=== PATIENT | female | born 1940 | race African-American/Black ===

== ENCOUNTER 2020-05-30 15:19 | Emergency (ER) | payer MEDICARE ==
[~2020-05-30] VITALS: Ht 162.6 cm; Wt 77.9 kg
--- NOTE | 2020-05-30 15:59 | PHYS DOC ---
General Adult EDM: Chief Complaint: DIZZY/LIGHT HEADED HPI: HPI: Patient is a 80-year-old female who presents with weakness and dizziness. Patient states that she was reaching up to grab a glass from her cabinet, when she felt like she was unable to grasp the glass. Patient also reports weakness in her legs. Family states that patient has had issues with weakness, shakiness for the past year but today symptoms were worse. Patient denies nausea, vomiting. Denies shortness of breath or chest pain. (RENAE GACRIA HAZARDOUS WASTE MANAGEMENT SPECIALIST) Review of Systems: Review of Systems: Constitutional: Denies fever or chills Eyes: Denies change in visual acuity HENT: Denies nasal congestion or sore throat Respiratory: Denies cough or shortness of breath Cardiovascular: Denies chest pain or edema GI: Denies abdominal pain, nausea, vomiting, bloody stools or diarrhea : Denies dysuria Musculoskeletal: Denies back pain or joint pain Integument: Denies rash Neurologic: Denies headache, reports generalized weakness Endocrine: Denies polyuria or polydipsia Lymphatic: Denies swollen glands Psychiatric: Denies depression or anxiety (RENAE GARCIA HAZARDOUS WASTE MANAGEMENT SPECIALIST) Physical Exam: PE: Constitutional: Well developed, well nourished, no acute distress, non-toxic appearance. [] HENT: Normocephalic, atraumatic, bilateral external ears normal, oropharynx moist, no oral exudates, nose normal. [] Eyes: PERRLA, EOMI, conjunctiva normal, no discharge. [] Neck: Normal range of motion, no tenderness, supple, no stridor. [] Cardiovascular:Heart rate regular rhythm, no murmur [] Lungs & Thorax: Bilateral breath sounds clear to auscultation [] Abdomen: Bowel sounds normal, soft, no tenderness, no masses, no pulsatile masses. [] Skin: Warm, dry, no erythema, no rash. [] Back: No tenderness, no CVA tenderness. [] Extremities: No tenderness, no cyanosis, no clubbing, ROM intact, no edema. [] Neurologic: Alert and oriented X 3, normal motor function, normal sensory function, no focal deficits noted. [] Psychologic: Affect normal, judgement normal, mood normal. [] (RENAE GARCIA HAZARDOUS WASTE MANAGEMENT SPECIALIST) EKG: EKG: SInus Rhythm, HR 73 BPM[] (RENAE GARCIA APRN) Radiology/Procedures: Radiology/Procedures: [] (RENAE GARCIA APRN) Heart Score: HEART Score for Chest Pain: HEART Score for Chest Pain Response (Comments) Value History Moderately Suspicious 1 ECG Normal 0 Age > 65 2 Risk Factors 1 or 2 Risk Factors 1 Troponin < Normal Limit 0 Total 4 Risk Factors: Risk Factors: DM, Current or recent (<one month) smoker, HTN, HLP, family history of CAD, obesity. Risk Scores: Score 0 - 3: 2.5% MACE over next 6 weeks - Discharge Home Score 4 - 6: 20.3% MACE over next 6 weeks - Admit for Clinical Observation Score 7 - 10: 72.7% MACE over next 6 weeks - Early Invasive Strategies (RENAE GARCIA APRN) Course & Med Decision Making: Course & Med Decision Making Pertinent Labs and Imaging studies reviewed. (See chart for details) []Patient is a 80-year-old female who presents with weakness and dizziness. Patient states that she was reaching up to grab a glass from her cabinet, when she felt like she was unable to grasp the glass. Patient also reports weakness in her legs. Family states that patient has had issues with weakness, shakiness for the past year but today symptoms were worse. Patient denies nausea, vomiting. Denies shortness of breath or chest pain. Chest Xray and CT head negative for acute abnormalities. UA negative for infection. Heart score of 4. Patient is hemodynamically stable. Patient requesting to be discharged to home and follow up with PCP for further evaluation and referral. Patient and daughter both agree with this plan. Patient is able to ambulate on her own at discharge and reports that she feels better. (RENAE GARCIA APRN) Dragon Disclaimer: Dragon Disclaimer: This electronic medical record was generated, in whole or in part, using a voice recognition dictation system. (RENAE GARCIA APRN) Departure Departure: Impression: Primary Impression: Weakness generalized Disposition: 01 DC HOME SELF CARE/HOMELESS Condition: IMPROVED Patient Instructions: Weakness, [id number] Additional Instructions: He was in the emergency room for weakness and shakiness. Your CT of your head was negative for any acute abnormalities. Follow-up with your primary care physician tomorrow for further evaluation and referral. Please return to the emergency room with worsening symptoms or concerns. EMERGENCY DEPARTMENT GENERAL DISCHARGE INSTRUCTIONS Thank you for coming to [facility] (ED) today and trusting us with you care. We trust that you had a positivie experience in our Emergency Department. If you wish to speak to the department management, you may call the director at [phone]. YOUR FOLLOW UP INSTRUCTIONS ARE FOLLOWS: 1. Do you have a private Doctor? If you do not have a private doctor, please ask for a resource list of physicians or clinics that may be able to assist you with follow up care. 2. The Emergency Physician has interpreted your x-rays. The X-Ray specialist will also review them. If there is a change in the findings, you will be notified in 48 hours when at all possible. 3. A lab test or culture has been done, your results will be reviewed and you will be notified if you need a change in treatment. ADDITIONAL INSTRUCTIONS AND INFORMATION: 1. Your care today has been supervised by a physician who is specially trained in emergency care. Many problems require more than one evaluation for a complete diagnosis and treatment. We recommend that you schedule your follow up appointment as recommended to ensure complete treatment of you illness or injury. If you are unable to obtain follow up care and continue to have a problem, or if your condition worsens, we recommend that you return to the ED. 2. We are not able to safely determine your condition over the phone nor are we able to give sound medical advice over the phone. For these safety reasons, if you call for medical advice we will ask you to come to the ED for further evaluation. 3. If you have any questions regarding these discharge instructions please call the ED at [phone]. SAFETY INFORMATION: In the interest of safety, wellness, and injury prevention; we encourage you to wear your sealbelt, if you smoke; quite smoking, and we encourage family to use a protective helmet for bicycling and other sporting events that present an increased risk for head injury. IF YOUR SYMPTOMS WORSEN OR NEW SYMPTOMS DEVELOP, OR YOU HAVE CONCERNS ABOUT YOUR CONDITION; OR IF YOUR CONDITION WORSENS WHILE YOU ARE WAITING FOR YOUR FOLLOW UP APPOINTMENT; EITHER CONTACT YOUR PRIMARY CARE DOCTOR, THE PHYSICIAN WHOSE NAME AND NUMBER YOU WERE GIVEN, OR RETURN TO THE ED IMMEDIATELY. Attending Signature Attending Signature I have reviewed the PA/STATION COOK's note and plan of care. I was available for con sultation as needed during the patient's visit in the emergency department. I agree with the clinical impression, plan, and disposition. (NATASHA SIMS DO) RENAE GARCIA APRN May 30, 2020 15:59 NATASHA SIMS DO May 30, 2020 23:03
[2020-05-30 16:15] LABS: BASO # 0.1 x10^3/uL (0.0-0.2); BASO % 1 % (0-3); EOS # 0.1 x10^3/uL (0.0-0.7); EOS % 1 % (0-3); HEMATOCRIT 41.8 % (36.0-47.0); HEMOGLOBIN 13.5 g/dL (12.0-15.5); LYMPH # 2.9 x10^3/uL (1.0-4.8); LYMPH % 49 % (24-48); MEAN CORPUSCULAR HEMOGLOBIN 30 pg (25-35); MEAN CORPUSCULAR HGB CONC 32 g/dL (31-37); MEAN CORPUSCULAR VOLUME 93 fL (79-100); MONO # 0.4 x10^3/uL (0.0-1.1); MONO % 7 % (0-9); NEUT # 2.4 x10^3uL (1.8-7.7); NEUT % 41 % (31-73); PLATELET COUNT 148 x10^3/uL (140-400); RED CELL DISTRIBUTION WIDTH 17.2 % (11.5-14.5); WHITE BLOOD COUNT 5.9 x10^3/uL (4.0-11.0)
[2020-05-30 16:23] LABS: BACTERIA,URINE 0 /HPF (0-FEW); BILIRUBIN,URINE NEG (NEG); CLARITY,URINE CLEAR; COLOR,URINE YELLOW; GLUCOSE,URINE NEG (NEG); NITRITE,URINE NEG (NEG); RBC,URINE 0 /HPF (0-2); UROBILINOGEN,URINE 0.2 mg/dL (0.2 mg/dL); WBC,URINE 0 /HPF (0-4)
--- NOTE | 2020-05-30 16:24 | RAD ---
EXAM: CHEST ONE VIEW. HISTORY: Weakness. COMPARISON: None. FINDINGS: A frontal view of the chest is obtained. The right hemidiaphragm is mildly elevated. There are no confluent infiltrates. There is no pneumotho rax or pleural effusion. The heart is not enlarged. IMPRESSION: 1. No confluent infiltrates. Electronically signed by: Carol Herrera MD (05/30/2020 4:21 PM) [id number]
--- NOTE | 2020-05-30 16:38 | RAD ---
EXAM: CT Head without IV contrast CLINICAL HISTORY: Weakness COMPARISON: None. TECHNIQUE: Routine CT of the head without contrast. PQRS compliance statement - One or more of the following individualized dose reduction techniques wer e utilized for this study: 1. Automated exposure control 2. Adjustment of the mA and/or kV according to patient size 3. Use of iterative reconstruction technique FINDINGS: There is no evidence of hemorrhage, mass or extra-axial fluid collection. Live-white differentiation is maintained with no evidence of edema. Subcortical, periventricular as w ell as deep white matter foci of hypoattenuation likely changes of chronic small vessel disease. There is no mass effect or shift of the intracranial structures. The ventricles, basilar cisterns and cortical sulci are normal in size and configuration for the viviane ents stated age. The cerebellum and brainstem are unremarkable. The calvarium demonstrates no evidence of fracture or focal lesion. There is normal aeration of the visualized paranasal sinuses and mastoid air cells. The visualized portions of the orbits are normal. IMPRESSION: 1. No evidence for acute intracranial process. 2. White matter changes, likely of chronic small vessel disease. Electronically signed by: Humberto Pollack MD (05/30/2020 4:36 PM) JESSICA
[2020-05-30 17:01] LABS: CALCIUM 8.7 mg/dL (8.5-10.1); POTASSIUM 4.7 mmol/L (3.5-5.1)
[2020-05-30 17:08] LABS: ALBUMIN 4.2 g/dL (3.4-5.0); ALBUMIN/GLOBULIN RATIO 1.1 (1.0-1.7); TOTAL BILIRUBIN 0.4 mg/dL (0.2-1.0)
[2020-05-30 17:45] VITALS: BP 142/80
--- NOTE | 2020-05-30 18:54 | EKG ---
[address] [address] Test Date: 2020-05-30 Test Time: 15:52:38 Pat Name: LESTER FONTAINE Department: Room: Gender: F Electric Shovel Operator: PRATIBHA : 1940 Requested By: RENAE GARCIA Order Number: [id number] Reading MD: Measurements Intervals [place] Rate: 73 P: 40 NM: 192 QRS: -43 QRSD: 76 T: 44 QT: 392 QTc: 436 Interpretive Statements SINUS RHYTHM ABNORMAL LEFT AXIS DEVIATION QRS(T) CONTOUR ABNORMALITY CONSISTENT WITH ANTEROSEPTAL INFARCT AGE UNDETERMINED CONSISTENT WITH INFERIOR INFARCT PROBABLY OLD ABNORMAL ECG RI6.02 No previous ECG available for comparison
[2020-05-30 21:04] LABS: ANISOCYTOSIS SLIGHT; PLT ESTIMATE DECREASED (ADEQUATE)
== END 2020-05-30 18:11 | disposition home or self-care (01) ==
LOC: ER 15:19
DX: R53.1 Weakness (principal); R42 Dizziness and giddiness
CPT/HCPCS: 36415; 70450; 71045; 80053; 81001; 84484; 85025; 93005; 99284; P9612

== ENCOUNTER 2020-08-15 14:40 | Observation (INO) | payer MEDICARE ==
[~2020-08-15] VITALS: Ht 160 cm; Wt 79.9 kg
--- NOTE | 2020-08-15 15:27 | RAD ---
EXAM: Head CT without contrast. HISTORY: Slurred speech. Weakness. TECHNIQUE: Computed tomographic images of the head were obtained without contrast. *One or more of the following individualized dose reduction techniques were utilized for this examina tion: 1. Automated exposure control. 2. Adjustment of the mA and/or kV according to patient size. 3. Use of iterative reconstruction technique. COMPARISON: 05/30/2020. FINDINGS: There is no acute or subacute extra-axial or intraparenchymal hemorrhage. There is no mass effect or midline shift. There is no hydrocephalus. There are areas of decreased attenuation within the cerebral white matter, nonspecific and likely rel ated to chronic small vessel disease. There is cerebral volume loss. There is evidence of lens disease. The visualized paranasal sinuses ma stoid air cells are clear. IMPRESSION: 1. No acute intracranial finding. Note is made that MRI is more sensitive for acute infarction. 2. Bilateral cerebral white matter changes, likely due to chronic small vessel disease. Electronically signed by: Caridad Jones MD (08/15/2020 3:25 PM) [facility]
[2020-08-15 15:28] LABS: BASO % 1 % (0-3); EOS # 0.1 x10^3/uL (0.0-0.7); EOS % 1 % (0-3); HEMATOCRIT 35.1 % (36.0-47.0); HEMOGLOBIN 11.4 g/dL (12.0-15.5); LYMPH # 2.5 x10^3/uL (1.0-4.8); LYMPH % 29 % (24-48); MEAN CORPUSCULAR HEMOGLOBIN 30 pg (25-35); MEAN CORPUSCULAR HGB CONC 32 g/dL (31-37); MEAN CORPUSCULAR VOLUME 94 fL (79-100); MONO # 0.5 x10^3/uL (0.0-1.1); MONO % 5 % (0-9); NEUT # 5.7 x10^3uL (1.8-7.7); NEUT % 64 % (31-73); PLATELET COUNT 176 x10^3/uL (140-400); RED BLOOD COUNT 3.74 x10^6/uL (3.50-5.40); RED CELL DISTRIBUTION WIDTH 16.8 % (11.5-14.5); WHITE BLOOD COUNT 8.8 x10^3/uL (4.0-11.0)
--- NOTE | 2020-08-15 15:43 | EKG ---
[address] [address] Test Date: 2020-08-15 Test Time: 15:31:51 Pat Name: LESTER FONTAINE Department: Room: Gender: F Provider Engagement Executive: PRATIBHA : 1940 Requested By: PARESH GARCÍA Order Number: [id number] Reading MD: Measurements Intervals [place] Rate: 82 P: 34 AL: 160 QRS: -42 QRSD: 96 T: 66 QT: 362 QTc: 426 Interpretive Statements SINUS RHYTHM ABNORMAL LEFT AXIS DEVIATION LEFT ANTERIOR FASCICULAR BLOCK ABNORMAL ECG RI6.02 No previous ECG available for comparison
[2020-08-15] MEDS ORDERED: IV NORMAL SALINE 1,000ML 1,000 ML IV ONE (15:45)
[2020-08-15 16:18] LABS: CALCIUM 9.2 mg/dL (8.5-10.1); CREATININE 2.4 mg/dL (0.6-1.0); GFR 23.6; POTASSIUM 4.6 mmol/L (3.5-5.1)
[2020-08-15 16:24] LABS: ALBUMIN 3.9 g/dL (3.4-5.0); ALBUMIN/GLOBULIN RATIO 1.1 (1.0-1.7); MAGNESIUM 2.6 mg/dL (1.8-2.4); TOTAL BILIRUBIN 0.4 mg/dL (0.2-1.0); TOTAL PROTEIN 7.5 g/dL (6.4-8.2)
--- NOTE | 2020-08-15 16:28 | PHYS DOC ---
Past History Past Medical History: Hypertension Past Surgical History: Other Additional Past Surgical Histo: ABDOMINAL SX Alcohol Use: Occasionally General Adult EDM: Chief Complaint: NEURO SYMPTOMS/DEFICITS HPI: HPI: Patient is a 80-year-old female who was taken here by EMS from her family medicine physician clinic today due to 10-day history of generalized weakness, slurry speech with the same length of time. Patient denies any injury. Patient has history of hypertension, she is on lisinopril 20 mg daily and Lasix 20 mg daily. Patient said her blood pressure has been low at home, she took it and it was 75/45, patient continued to take her blood pressure medications somehow. Patient is also on Lyrica and Seroquel. Her finally brought her to see her family doctor today, when she was in the clinic, patient what appeared to be weak, slow to respond, her speech was slurred so her doctor called EMS to take her here for evaluation of possible stroke. Her said all the symptoms have been going on for 10 days. Patient denies any cough or fever, no abdominal pain, no nausea vomiting. Patient denies any chest pain, no headache, no trouble breathing. Patient denies any numbness anywhere, denies any neck pain or blurry vision. Review of Systems: Review of Systems: Constitutional: Denies fever or chills Eyes: Denies change in visual acuity HENT: Denies nasal congestion or sore throat Respiratory: Denies cough or shortness of breath Cardiovascular: Denies chest pain or edema GI: Denies abdominal pain, nausea, vomiting, bloody stools or diarrhea : Denies dysuria Musculoskeletal: Denies back pain or joint pain Integument: Denies rash Neurologic: Denies headache, focal weakness or sensory changes. Positive for generalized weakness. Endocrine: Denies polyuria or polydipsia Lymphatic: Denies swollen glands Psychiatric: Denies depression or anxiety Current Medications: Current Meds: Current Medications Medications (Trade) Dose Ordered Sig/Lance Start Time Stop Time Status Last Admin Dose Admin Sodium Chloride 1,000 ml @ 1,000 mls/hr 1X ONCE 08/15/20 15:45 08/15/20 16:44 08/15/20 15:49 1,000 MLS/HR Allergies: Allergies: Allergies Coded Allergies Type Severity Reaction Last Updated Verified morphine Allergy Unknown 08/15/20 Yes Physical Exam: PE: Constitutional: Well developed, well nourished, no acute distress, non-toxic appearance. [] HENT: Normocephalic, atraumatic, bilateral external ears normal, oropharynx moist, no oral exudates, nose normal. [] Eyes: PERRLA, EOMI, conjunctiva normal, no discharge. [] Neck: Normal range of motion, no tenderness, supple, no stridor. [] Cardiovascular:Heart rate regular rhythm, no murmur [] Lungs & Thorax: Bilateral breath sounds clear to auscultation [] Abdomen: Bowel sounds normal, soft, no tenderness, no masses, no pulsatile masses. [] Skin: Warm, dry, no erythema, no rash. [] Back: No tenderness, no CVA tenderness. [] Extremities: No tenderness, no cyanosis, no clubbing, ROM intact, no edema. [] Neurologic: Alert and oriented X 3, normal motor function, normal sensory function, no focal deficits noted. Patient can speak normally but sometimes she has some expressive aphasia. but then she can overcome it and spoke normally. Psychologic: Affect normal, judgement normal, mood normal. [] Current Patient Data: Labs: Laboratory Tests Test 08/15/20 14:56 08/15/20 15:30 White Blood Count 8.8 x10^3/uL (4.0-11.0) Red Blood Count 3.74 x10^6/uL (3.50-5.40) Hemoglobin 11.4 g/dL (12.0-15.5) L Hematocrit 35.1 % (36.0-47.0) L Mean Corpuscular Volume 94 fL (79-100) Mean Corpuscular Hemoglobin 30 pg (25-35) Mean Corpuscular Hemoglobin Concent 32 g/dL (31-37) Red Cell Distribution Width 16.8 % (11.5-14.5) H Platelet Count 176 x10^3/uL (140-400) Neutrophils (%) (Auto) 64 % (31-73) Lymphocytes (%) (Auto) 29 % (24-48) Monocytes (%) (Auto) 5 % (0-9) Eosinophils (%) (Auto) 1 % (0-3) Basophils (%) (Auto) 1 % (0-3) Neutrophils # (Auto) 5.7 x10^3uL (1.8-7.7) Lymphocytes # (Auto) 2.5 x10^3/uL (1.0-4.8) Monocytes # (Auto) 0.5 x10^3/uL (0.0-1.1) Eosinophils # (Auto) 0.1 x10^3/uL (0.0-0.7) Basophils # (Auto) 0.0 x10^3/uL (0.0-0.2) Sodium Level 140 mmol/L (136-145) Potassium Level 4.6 mmol/L (3.5-5.1) Chloride Level 105 mmol/L (98-107) Carbon Dioxide Level 25 mmol/L (21-32) Anion Gap 10 (6-14) Blood Urea Nitrogen 46 mg/dL (7-20) H Creatinine 2.4 mg/dL (0.6-1.0) H Estimated GFR (Cockcroft-Gault) 23.6 BUN/Creatinine Ratio 19 (6-20) Glucose Level 91 mg/dL (70-99) Calcium Level 9.2 mg/dL (8.5-10.1) Magnesium Level 2.6 mg/dL (1.8-2.4) H Total Bilirubin 0.4 mg/dL (0.2-1.0) Aspartate Amino Transferase (AST) 21 U/L (15-37) Alanine Aminotransferase (ALT) 33 U/L (14-59) Alkaline Phosphatase 91 U/L (46-116) Total Protein 7.5 g/dL (6.4-8.2) Albumin 3.9 g/dL (3.4-5.0) Albumin/Globulin Ratio 1.1 (1.0-1.7) Vital Signs: Vital Signs Date Time Temp Pulse Resp B/P (MAP) Pulse Ox O2 Delivery O2 Flow Rate FiO2 08/15/20 14:40 97.7 61 12 86/62 (66) 97 EKG: EKG: EKG was done at 1531, heart rate of 82 bpm, sinus rhythm, no ST segment elevation, left axis Radiology/Procedures: Radiology/Procedures: [][address] [address] IMAGING REPORT Signed PATIENT: LESTER FONTAINE ACCOUNT: [id number] : 1940 LOCATION: ER AGE: 80 SEX: F EXAM STATUS: REG ER ORD. PHYSICIAN: PARESH GARCÍA DO REASON: slurred speech,weakness PROCEDURE: CT HEAD WO CONTRAST EXAM: Head CT without contrast. HISTORY: Slurred speech. Weakness. TECHNIQUE: Computed tomographic images of the head were obtained without contrast. *One or more of the following individualized dose reduction techniques were utilized for this examination: 1. Automated exposure control. 2. Adjustment of the mA and/or kV according to patient size. 3. Use of iterative reconstruction technique. COMPARISON: 05/30/2020. FINDINGS: There is no acute or subacute extra-axial or intraparenchymal hemorrhage. There is no mass effect or midline shift. There is no hydrocephalus. There are areas of decreased attenuation within the cerebral white matter, nonspecific and likely related to chronic small vessel disease. There is cerebral volume loss. There is evidence of lens disease. The visualized paranasal sinuses mastoid air cells are clear. IMPRESSION: 1. No acute intracranial finding. Note is made that MRI is more sensitive for acute infarction. 2. Bilateral cerebral white matter changes, likely due to chronic small vessel disease. Electronically signed by: Caridad Xiong MD (08/15/2020 3:25 PM) [facility] DICTATED AND SIGNED BY: CARIDAD XIONG MD DATE: 08/15/20 1524 CC: PARESH GARCÍA DO; MALLIKA MARCUS ~MTH0 0 Heart Score: C/O Chest Pain: N/A Risk Factors: Risk Factors: DM, Current or recent (<one month) smoker, HTN, HLP, family history of CAD, obesity. Risk Scores: Score 0 - 3: 2.5% MACE over next 6 weeks - Discharge Home Score 4 - 6: 20.3% MACE over next 6 weeks - Admit for Clinical Observation Score 7 - 10: 72.7% MACE over next 6 weeks - Early Invasive Strategies Course & Med Decision Making: Course & Med Decision Making Pertinent Labs and Imaging studies reviewed. (See chart for details) Patient is a 80-year-old female who was brought here by EMS for evaluation of weakness, slurred speech for [address] scan of the head did not show any acute problem, her lab work showed that her kidney function is getting worse. Her blood pressure has been low in the 90/50. Patient was given IV fluid in ER. On examination patient had no focal neurological deficit except she has some period of expressive aphasia. Discussed with the hospitalist photonic laboratory technician, Dr. Rojo who agreed to admit patient to the hospital, request hold her blood pressure medication and her psych medications, requested inpatient neurology consult with Dr. Lucio. Discussed with the neurologist, Dr. Lucio, agreed to see patient in the hospital. Dragon Disclaimer: Noah Disclaimer: This electronic medical record was generated, in whole or in part, using a voice recognition dictation system. Departure Departure: Impression: Primary Impression: Weakness Additional Impressions: Acute renal failure Polypharmacy Slurred speech Disposition: ADMITTED INPATIENT Admitting Physician: Luca Rojo Condition: STABLE Referrals: MALLIKA MARCUS (PCP) PARESH GARCÍA DO Aug 15, 2020 16:28
[2020-08-15 16:38] LABS: BACTERIA,URINE 0 /HPF (0-FEW); BILIRUBIN,URINE NEG (NEG); CLARITY,URINE CLEAR; COLOR,URINE YELLOW; GLUCOSE,URINE NEG (NEG); NITRITE,URINE NEG (NEG); RBC,URINE 0 /HPF (0-2); SQUAMOUS EPITHELIAL CELL,UR OCC /LPF; UROBILINOGEN,URINE 0.2 mg/dL (0.2 mg/dL); WBC,URINE 0 /HPF (0-4)
[2020-08-15] MEDS ORDERED: ONDANSETRON PF 4 MG/2 ML VIAL. IVP PRN (17:30)
--- NOTE | 2020-08-15 19:30 | NUR ---
ADMISSION: The patient, LESTER FONTAINE, 80 y/o, F admitted by JESSICA HERNANDES MD, was given written information regarding hospital policies, unit procedures and contact persons. Pt arrived to ICU bed 2 via gurney, accompanied by [facility] and nursing sup. Pt here for c/o weakness, dizziness, slurred speech x10 days. Pt was seen by her PCP today and was found to have very low BP, along with other symptoms, was sent to ED for stroke workup. Neuro consult placed to Dr. Lucio. Pt A/Ox4, drowsy. Does have some intermittent difficulty finding words and slurred speech. Pt reports she "takes a lot of meds" at home but is unable to list them off or dosages. Will need to call [facility] in AM. Pt is telemetry status. Placed on monitor, showing SR with rate in the 70's. Oriented pt to room and POC, V/U. Bed in lowest position. Call light in reach. Valuables were checked and logged. Left in room with pt.
[2020-08-15 20:00] VITALS: BP 116/74
[2020-08-15] MEDS: IV NORMAL SALINE 1,000ML 1,000 ML IV SCH (20:52)
[2020-08-16] VITALS (8 sets, daily range): BP systolic 100–136; BP diastolic 66–85
[2020-08-16] MEDS: IV NORMAL SALINE 1,000ML 1,000 ML IV SCH ×2 (06:45→13:30)
--- NOTE | 2020-08-16 12:32 | HP ---
ADMIT DATE: 08/15/2020 ATTENDING PHYSICIAN: Dr. Meneses. CHIEF COMPLAINT: Weakness. HISTORY OF PRESENT ILLNESS: The patient is a pleasant 80-year-old female admitted through the ED coming from her doctor's office. She has multiple meds for blood pressure as well as psychiatric issues. She was on hydrochlorothiazide and lisinopril as well as Lasix. Blood pressure had been low in the ED, it was 75/45 mmHg. She was also on Lyrica and Seroquel. She appeared to be weak, poorly responsive slurred speech. She was admitted for further treatment and evaluation, and extensive workup in the ED. PAST MEDICAL HISTORY: Significant for essential hypertension, underlying psychiatric issues, insomnia, and gastroesophageal reflux disease and chronic pain syndrome. CURRENT MEDICATIONS: Include Lyrica 50 mg b.i.d. and 150 at bedtime, Lidoderm patch, Lasix 20 mg daily, allopurinol, Seroquel 200 mg daily, omeprazole 20 mg daily, lisinopril, Abilify, Cymbalta, and Lipitor 20 mg at bedtime. Also, hydrocodone p.r.n., vitamin D, B12, and Tylenol. SOCIAL HISTORY: She is a nonsmoker, nondrinker. ALLERGIES: MORPHINE, exact reaction is unclear. FAMILY HISTORY: Noncontributory. REVIEW OF SYSTEMS: Significant for generalized weakness and chronic back pain. Her appetite has been fair. All other systems reviewed and determined to be negative. PHYSICAL EXAMINATION: GENERAL: When I saw her, this is a pleasant elderly female who was alert. Speech is fluent. INITIAL VITAL SIGNS: Showed a blood pressure of 108/72 mmHg, pulse is regular. She is afebrile and oxygen saturation 91% on room air. HEENT: Head is without trauma. Pupils are reactive. Sclerae are nonicteric. The oropharynx is clear. NECK: Supple, no bruits identified. LUNGS: Good breath sounds. CARDIOVASCULAR: Showed regular heart tones. No gallops. ABDOMEN: Soft. EXTREMITIES: Without edema. NEUROLOGIC FINDINGS: Focally intact. Speech is fluent without any dysarthria. PERTINENT LABORATORY STUDIES: Her hemoglobin is 11.4 g/dL with a white count of 8800. Chemistry panel; electrolytes are within normal range. Creatinine 2.4 mg/dL and a BUN of 46 mg percent, potassium 4.6 mEq. ASSESSMENT: 1. A 80-year-old female with medication-related hypotension and dizziness. She did not have any acute stroke. 2. Hypotension documented. 3. Chronic kidney disease stage 4, aggravated by diuretics. I do not know what her baseline creatinine is. 4. Chronic pain syndrome. 5. Underlying psychiatric issues, details are sketchy at this point. PLAN: 1. Admit to the inpatient unit. 2. Diuretics, lisinopril and Seroquel have been held. 3. Gentle IV hydration. 4. Serial chemistries. 5. Continue some home meds. EFFIE MENESES MD DR: CYNDI/elio JOB#: [id number] / [id number] Neda Silverio
[2020-08-16] MEDS ORDERED: FURO20TA3 PO (16:24)
[2020-08-16] MEDS ORDERED: DULO30CA2 PO (16:24)
[2020-08-16] MEDS ORDERED: PREG150C PO (16:24)
[2020-08-16] MEDS ORDERED: LIDO700A21 TP (16:24)
[2020-08-16] MEDS ORDERED: ALLO100T PO (16:24)
[2020-08-16] MEDS ORDERED: QUET200T4 PO (16:24)
[2020-08-16] MEDS ORDERED: OMEP20CA16 PO (16:24)
[2020-08-16] MEDS ORDERED: ATOR20TA PO (16:24)
[2020-08-16] MEDS ORDERED: ARIP15TA36 PO (16:24)
[2020-08-16] MEDS ORDERED: LISI20TA18 PO (16:24)
[2020-08-16] MEDS ORDERED: PREG50CA PO (16:24)
--- NOTE | 2020-08-17 00:39 | CONS ---
DATE OF CONSULTATION: NEUROLOGY CONSULTATION REFERRING PHYSICIAN: Dr. Ellis. REASON FOR CONSULTATION: Generalized weakness and slurred speech. HISTORY OF PRESENT ILLNESS: This is a 80-year-old right-handed female who was admitted through Emergency Room after she presented with a 2-week history of slowly progressive generalized weakness and recently slurred speech. The patient described her speech as stuttering speech. She denies headaches, visual disturbances, nausea, vomiting, chest pain, shortness of breath or palpitation, dysarthria or dysphagia. The patient denies any recent head injuries or fall. According to the patient, she has had history of hypertension for which she has been taking lisinopril. Prior to the admission, she took her blood pressure at home and it was very low at 75/45. However, she continues to take her lisinopril. The patient denies any history of stroke in the past. On arrival to the Emergency Room, her blood pressure was 86/62. Initial nonenhanced head CT scan revealed no evidence of acute intracranial process, but shows chronic small vessel ischemic changes in the white matter. PAST MEDICAL HISTORY: Significant for edematous feet, insomnia, hypertension, arthritis. PAST SURGICAL HISTORY: Quite significant for multiple injuries to the right knee, abdomen surgery for ovarian cancer, hysterectomy. SOCIAL HISTORY: The patient is . She denies smoking, alcohol drinking, or illicit drug use. CURRENT HOME MEDICATIONS: Lisinopril 20 mg p.o. daily, Seroquel and Lyrica of an unknown dose at this time. FAMILY HISTORY: Noncontributory. REVIEW OF SYSTEMS: A 12-point review of system was performed as mentioned above in history of present illness, otherwise unremarkable. PHYSICAL EXAMINATION: GENERAL: Well-developed, well-nourished female, not in acute distress. She weighs 79.9 kilos. VITAL SIGNS: Blood pressure 106/71, respiratory rate 20, pulse is 97, temperature 98, oxygen saturation 92% on room air. HEENT: Normocephalic, atraumatic, otherwise unremarkable. NECK: Supple. Negative for carotid bruit, lymphadenopathy or thyromegaly. LUNGS: Clear to A and P. CARDIOVASCULAR: Regular rate and rhythm, normal S1, S2. There is no S3, S4 or murmur. ABDOMEN: Soft. Bowel sounds positive. EXTREMITIES: Negative for cyanosis, clubbing, or pedal edema. NEUROLOGIC: Mental status, the patient is alert and oriented x 3. Speech is fluent. There is no language dysfunction. Memory, judgment, and abstracting thinking are normal. The patient denies hallucination or delusion. CRANIAL NERVES: Visual cortés are full. The pupils are reactive to light and accommodation. The extraocular movements are intact. There is no nystagmus. There is no facial motor or sensory deficit. Hearing is intact bilaterally. The palate is elevated symmetrically. Sternocleidomastoid muscles are powerful bilaterally. The patient shrugs her shoulders symmetrically, protrudes her tongue in the midline without fasciculation or atrophy. MOTOR EXAMINATION: No focal muscle bulk was seen. The tone is normal. The strength is 4/5 in the upper extremity and 5/5 in the lower extremities. SENSORY EXAMINATION: Reveal normal pinprick, light touch, vibratory and position senses. Deep tendon reflexes were symmetric and hypoactive with absent Achilles responses. GAIT: The stance is steady. The patient walks without assistance, but tandem gait is difficult. LABORATORY DATA: CBC revealed white blood cells of 8.8 thousand, hemoglobin 11.4, hematocrit 35.1, platelet count 176,000. Chemistry revealed sodium of 140, potassium 4.6, chloride 105, CO2 of 25, BUN 46, creatinine 2.4 and glucose 91. Magnesium is high at 2.6. Liver enzymes are normal. Urinalysis is negative for urinary tract infections. IMPRESSION: 1. A 2-week history of generalized weakness, probably multifactorial including a polypharmacy with marked hypotension due to lisinopril. 2. Insomnia. 3. Arthritis. 4. Hypertension, but currently hypotension and acute renal failure. RECOMMENDATIONS: 1. To hold lisinopril and adjust blood pressure medications as needed. 2. Physical therapy. 3. Treat the underlying acute renal failure. M Josey CRUZ MD DR: TINO/elio JOB#: [id number] / [id number]
[2020-08-17 06:02] VITALS: BP 125/77
[2020-08-17 06:18] LABS: ALBUMIN 3.3 g/dL (3.4-5.0); CALCIUM 8.3 mg/dL (8.5-10.1); GFR 64.7; TOTAL BILIRUBIN 0.3 mg/dL (0.2-1.0); TOTAL PROTEIN 6.6 g/dL (6.4-8.2)
--- NOTE | 2020-08-17 08:43 | DS ---
DATE OF DISCHARGE: 08/17/2020 ATTENDING PHYSICIAN: Dr. Meneses. FINAL DISCHARGE DIAGNOSES: 1. Dehydration. 2. Acute renal failure secondary to diuretics, resolved. 3. Hypotension, improved. 4. Essential hypertension. 5. Chronic pain syndrome. 6. Altered mentation, stroke ruled out. HISTORY AND PHYSICAL: The patient is a pleasant 80-year-old female admitted through the ED sent over from doctor's office with hypotension, confusion and generalized weakness. She is on several medications. She was also dehydrated with a serum creatinine of 2.4 mg/dL. She was admitted for further treatment and evaluation. PHYSICAL EXAMINATION: Please see the dictated note. PERTINENT LABORATORY AND X-RAY STUDIES: Admission hemoglobin was 11.4 g/dL with a white count of 8800. Her admission electrolytes showed a BUN of 46, creatinine 2.4 mg/dL. Electrolytes are within normal range. Potassium is 4.6 mEq per liter. With gentle IV hydration on the next day her serum creatinine improved to 1.0 mg/dL, BUN came down to 25 mg/dL and electrolytes remain unchanged. COURSE IN THE HOSPITAL: The patient was admitted. She was started on gentle IV hydration. I took the liberty of stopping her diuretics, Lasix as well as her Seroquel. We held her lisinopril. She did well. By the next hospital day, her vital signs showed improved blood pressure 126/77, pulse is 63 and regular. She was afebrile. Her oxygen saturations are 99% on room air and she was ready for discharge. She stated that she had some issues with sleeping at home at night. I suggested that we try a trial course of Restoril 30 mg at bedtime. I gave her 15 pills. If this works, she can get a refill from her primary care doctor. Therefore, on the third hospital day, she was discharged home with the following changes in meds, the addition of Restoril 30 mg at bedtime. She will continue her Abilify 15 mg daily, Lipitor 20 mg daily, Cymbalta 30 mg daily, Lidoderm patch, lisinopril 20 mg daily, omeprazole 20 mg daily, Lyrica 50 mg b.i.d. and 150 at bedtime. For now, I have asked her to stop the Lasix, allopurinol and Seroquel. I suggested she follow up with her primary care physician, Dr. Neda Chakraborty. She was discharged then from our hospital in stable condition with explicit instructions and followup care. Total discharge time spent 38 minutes. EFFIE MENESES MD DR: CYNDI/elio JOB#: [id number] / [id number] Dr. Neda Silverio
--- NOTE | 2020-08-17 08:58 | NUR ---
Pt is stable and alert x 4. Pt's IV was discontinued and pt was removed from the monitor. Pt states her ride will be here within an hour. Pt signed discharge paperwork and is waiting in her room for a ride.
--- NOTE | 2020-08-18 07:26 | PN ---
DATE: 08/17/2020 SUBJECTIVE: The patient denies any new medical or neurological complaints. She feels stronger. She completed physical therapy and she felt much better than yesterday. OBJECTIVE: GENERAL: Well-developed, well-nourished female, not in acute distress. VITAL SIGNS: Blood pressure 125/77, respiratory rate 18, pulse is 63 and regular, temperature 98.1, oxygen saturation 99% on room air. HEENT: Normocephalic, atraumatic, otherwise unremarkable. NECK: Supple. Negative for carotid bruit, lymphadenopathy or thyromegaly. LUNGS: Clear to A and P. CARDIOVASCULAR: Regular rate and rhythm, normal S1, S2. There is no S3, S4 or murmur. ABDOMEN: Soft. Bowel sounds positive. EXTREMITIES: Negative for cyanosis, clubbing or edema. NEUROLOGICAL EXAM: Mental Status: The patient is alert and oriented x 3. Speech is fluent. There is no language dysfunction, otherwise unremarkable. Cranial nerves are intact. No focal motor or sensory deficit. The strength is 4/5 in the lower extremities and 5/5 in the upper extremities. Sensory examination revealed normal pinprick, light touch senses. Deep tendon reflexes were symmetric and active with absent Achilles responses. Gait: The stance is more steady. The patient walked without assistance. IMPRESSION: 1. A 2-week history of generalized weakness, probably multifactorial including polypharmacy and hypertension due to lisinopril. 2. Insomnia, arthritis, history of hypertension. RECOMMENDATIONS: 1. Continue with current management initiated by Dr. Amor. 2. Follow up with Dr. Cruz on an outpatient basis as needed. M Josey CRUZ MD DR: TINO/elio JOB#: [id number] / [id number]
== END 2020-08-17 09:30 | disposition home or self-care (01) ==
LOC: EDBD 14:40 → ER 14:40 → ICU 17:21 → INTOOBSV 17:21 → 1 SOUTH 08-16 06:50
PROVIDERS: ADMIT Internal Medicine; ATTEND Internal Medicine
DX: N17.9 Acute kidney failure, unspecified (principal); E86.0 Dehydration; I95.9 Hypotension, unspecified; I12.9 Hypertensive chronic kidney disease with stage 1 through stage 4 chronic kidney disease, or unspecified chronic kidney disease; N18.4 Chronic kidney disease, stage 4 (severe); R42 Dizziness and giddiness; G89.4 Chronic pain syndrome; G47.00 Insomnia, unspecified; R47.81 Slurred speech; R41.82 Altered mental status, unspecified; K21.9 Gastro-esophageal reflux disease without esophagitis; I73.9 Peripheral vascular disease, unspecified; M19.90 Unspecified osteoarthritis, unspecified site; Z79.899 Other long term (current) drug therapy; Z85.43 Personal history of malignant neoplasm of ovary; Z90.710 Acquired absence of both cervix and uterus; Z98.890 Other specified postprocedural states
CPT/HCPCS: 36415; 70450; 80053; 81001; 83735; 85025; 93005; 96360; 96361; 97161; 97166; 97530; 99285; G0378; J7030; G0379